=== PATIENT | female | born 1965 | race Caucasian/White ===

== ENCOUNTER → 2017-11-06 15:59 | Outpatient (CLI) | payer OTHER, SELFPAY ==
--- NOTE | 2017-11-06 16:06 | RAD_ITS ---
STUDY: X-RAY - CERVICAL SPINE REASON FOR EXAM: Female, 51 years old. Neck pain TECHNIQUE: Six view(s) of the cervical spine were obtained. COMPARISON: None FINDINGS: Normal anterior atlantoaxial articulation. Normal odontoid process. There is straightening of the normal cervical lordosis. There is minimal anterior subluxation of C4 on C5. No significant abnormalities are seen in the vertebral bodies. There is moderate disc space narrowing at C5-6 and C6-7. There is mild foraminal narrowing on the right at C4-5 and C6-7. There is mild foraminal narrowing on the left at C4-5. There is marked foraminal narrowing on the left at C5-6. There is no prevertebral soft tissue swelling. The lung apices are clear. RAD/Cerv Spine 4 or 5 Views IMPRESSION: There are moderate degenerative disc changes at C5-6 and C6-7. There is marked foraminal narrowing on the left at C5-6. Electronically Signed: Jessenia Jarrell MD at 9:02 EDT Tel Direct: [phone], Service support ,
== END ==
PROVIDERS: Family Provider Family Medicine; PCP Family Medicine; Visit Provider Family Medicine
DX: M50.322 Other cervical disc degeneration at C5-C6 level (principal); M48.02 Spinal stenosis, cervical region
CPT/HCPCS: 72050

== ENCOUNTER 2018-02-05 10:00 | Outpatient (RCR) | payer OTHER, SELFPAY ==
--- NOTE | 2017-11-15 17:48 | HP.PTEVAL_ITS ---
Patient's Visit Information RACHELE YATES is a 52 year old F referred to Physical Therapy by Vern HAYS with a diagnosis of CERVICALAGIA. Date of Evaluation: 11/15/17 Physical Therapist: Juan Gamez PT, - Visit Plan Frequency: 2x /Week Duration: 4 Weeks Plan: manual therapy STM/CERVICAL THORACIC MOBILIZATION ,ICTX 15-20 # X15MIN, FRANK EX,THORACIC,MODALITIES PRN - Subjective Subjective: This 52 y/o female presents to physical therapy with cervicalagia about 1 year. Location symmtrical cervical pain decribed as stiffness/ache. Symptom worse with turning , flexion,extension,driving.siting looking down . Pain afffects sleeping . Symptoms not better with massage. Symptoms affect daily activities and housework task /job demands Denies parathesia/tingling. Patient has RIVERA frontal.Denies tinutis/nausea/dizziness. 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 SOCIAL: - Pain Bilateral Neck Pain Intensity (Out of 10): 2 Pain Intensity Range: 10 - Objective POSTURE: foward head rounded head. NEURO: denies parathesia/tingling ,reflexes 2/3 C5-6-7. PALPATION: UT /levator very tight left greater than right. MMT: BUE 4/5 grossly. AROM: BUE WNL. CERVICAL ROM: flexion min loss,lateral flexion /rotation mod loss,exyension mod loss - Special Tests C/S Radiculapathy - Left Upper limb tension test: Negative C/S Radiculapathy - Right Upper limb tension test: Negative C/S Radiculapathy - Left Spurlings: Positive C/S Radiculapathy - Right Spurlings: Negative C/S Radiculapathy - Left Cervical distraction: Negative C/S Radiculapathy - Right Cervical distraction: Negative Cervical Sitting: Protrusion - Mechanical Response: No effect Cervical Sitting: Protrusion - Symptoms During Testing: No effect Cervical Sitting: Protrusion - Symptoms After Testing: No effect Cervical Sitting: Retraction - Mechanical Response: No effect Cervical Sitting: Retraction - Symptoms During Testing: No effect Cervical Sitting: Retraction - Symptoms After Testing: No effect Cervical Sitting: Retraction-Extension - Mechanical Response: No effect - Goals Goal 1:: Independant with HEP Goal Time Frame: 4-6 Weeks Goal 2:: Independant with posture for ADL'S Goal Time Frame: 4-6 Weeks Goal 3:: Decrease cervical pain 60 % or greater to improve function and ADL;S Goal Time Frame: 4-6 Weeks Goal 4:: Patient improve cervical ROM min loss for function of recovery Goal Time Frame: 4-6 Weeks Goal 5:: Patient be able to peform ADL'S and housework tasks with min limiations Goal Time Frame: 4-6 Weeks - Rehabilitation Potential Physical Therapy Diagnosis: This 52 y/o female displays ith pain cervical -Left UT WITH POSTION,MOTION TO LEFT afffects ADLS' and housework tasks hue to 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 along with possible asymmtrical derrangement Rehabilitation Potential: Good - Anticipated Interventions Patient/Client Instruction: Educate patient on: Condition, Plan of Care For the Purpose of:: To decrease pain, To improve nutrient delivery to tissue, To improve muscle performance and motor function, To improve ability to perform ADL's, To increase tolerance to activity/condition/position, To improve ability of physical actions for home/community/work/leisure, To improve health of tissue , To decrease soft tissue restriction, To increase flexibility/ROM, To assume or resume ADL's, To reduce risk of recurrence, To improve ability to perform tasks related to life management Therapeutic Exercise to Include: Strength training, Postural training, Flexibilty training, Frank Exercises Comment: CERVICAL/THORACIC For the Purpose of:: To decrease pain, To increase ROM, To improve muscle performance and motor function, To increase tolerance to activity/condition/ position, To improve ability of physical actions for home/community/work/leisure , To improve health of tissue, To decrease soft tissue restriction, To increase flexibility/ROM, To improve ability to perform tasks related to life management Manual Therapy Techniques to Include: Mobilization, Soft tissue mobilization For the Purpose of:: To decrease pain, To increase ROM, To improve muscle performance and motor function, To increase tolerance to activity/condition/ position, To improve ability of physical actions for home/community/work/leisure , To improve health of tissue, To decrease soft tissue restriction, To increase flexibility/ROM, To reduce risk of recurrence, To prevent re-injury, To improve ability to perform tasks related to life management TENS: Yes IF ES: Yes Cryotherapy (ice pack, ice massage): Yes Thermo therapy (hot pack): Yes Ultrasound (thermal/non thermal): Yes Intermittent cervical traction: Yes - 15-20# For the Purpose of:: To decrease pain, To increase ROM, To improve nutrient delivery to tissue, To increase oxygenation perfusion, To improve health of tissue, To decrease soft tissue restriction, To increase flexibility/ROM Thank you for the opportunity to evaluate your patient. For Medicare and Medicare HMO plans, please review the plan of care and approve it. It will need to be FAXED BACK to us at [phone] for Medicare purposes. Please let me know if there are questions or concerns regarding this plan of care. Physician Signature: Date:
--- NOTE | 2018-04-05 07:52 | HP.PTDCNRP_ITS ---
HP - Discharge Summary (1) - Patient Information RACHELE YATES was seen in my office for initial evaluation on 11/15/17. The following Plan of Care was established for this patient: Initial Frequency: 2x /Week Initial Duration: 4 Weeks - Anticipated Interventions Patient/Client Instruction: Educate patient on: Condition, Plan of Care For the Purpose of:: To decrease pain, To improve nutrient delivery to tissue, To improve muscle performance and motor function, To improve ability to perform ADL's, To increase tolerance to activity/condition/position, To improve ability of physical actions for home/community/work/leisure, To improve health of tissue , To decrease soft tissue restriction, To increase flexibility/ROM, To assume or resume ADL's, To reduce risk of recurrence, To improve ability to perform tasks related to life management Therapeutic Exercise to Include: Strength training, Postural training, Flexibilty training, Nathan Exercises For the Purpose of:: To decrease pain, To increase ROM, To improve muscle performance and motor function, To increase tolerance to activity/condition/ position, To improve ability of physical actions for home/community/work/leisure , To improve health of tissue, To decrease soft tissue restriction, To increase flexibility/ROM, To improve ability to perform tasks related to life management Manual Therapy Techniques to Include: Mobilization, Soft tissue mobilization For the Purpose of:: To decrease pain, To increase ROM, To improve muscle performance and motor function, To increase tolerance to activity/condition/ position, To improve ability of physical actions for home/community/work/leisure , To improve health of tissue, To decrease soft tissue restriction, To increase flexibility/ROM, To reduce risk of recurrence, To prevent re-injury, To improve ability to perform tasks related to life management TENS: Yes IF ES: Yes Cryotherapy (ice pack, ice massage): Yes Thermo therapy (hot pack): Yes Ultrasound (thermal/non thermal): Yes Intermittent cervical traction: Yes - 15-20# For the Purpose of:: To decrease pain, To increase ROM, To improve nutrient delivery to tissue, To increase oxygenation perfusion, To improve health of tissue, To decrease soft tissue restriction, To increase flexibility/ROM This patient was last seen in our office 02/06/18. Pertinent comments regarding their Physical therapy will appear below: This patient seen for cerviclalgia focusing on manual therapy,ICTX,US and cervicla postural ex's . Patient progressing with decreasing cervical pain,ROM of cervical,improving function,but conts to have endrange pain with cedrvical rotation /lateral flexion end range.Patient to return MD, thus D/C At this point I will be discontinuing this patient from physical therapy. I would be happy to see this patient again in the future if found appropriate by the physician. Thank you! Juan Gamez, PT,
== END 2018-02-05 19:00 | disposition home or self-care (01) ==
LOC: PT 10:00
PROVIDERS: Family Provider Family Medicine; PCP Family Medicine; Visit Provider Family Medicine
DX: M54.2 Cervicalgia (principal)
CPT/HCPCS: 97012; 97035; 97110; 97140; 97161; 97530

== ENCOUNTER → 2018-03-12 08:32 | Outpatient (CLI) | payer OTHER, SELFPAY ==
--- NOTE | 2018-03-12 08:36 | BI_ITS ---
MAMMOGRAPHY - BILATERAL SCREENING REASON FOR EXAM: Female, 52 years old. Routine annual screening examination. PERTINENT HISTORY: Non-contributory. TECHNIQUE: Digital bilateral breast en (3D mammographic acquisition) in the CC and MLO projections. 2-D mediolateral oblique (MLO) and craniocaudad (CC) views of both breasts were obtained. CAD: Full Field Digital Mammography with Computer Added Detection was performed. COMPARISON: Comparison is made with prior study dated February 17, 2015 and March 27, 2014. FINDINGS: Breast Composition: The breasts are heterogeneously dense, which may obscure small masses. There are no dominant masses or suspicious calcifications. No other significant abnormalities are identified. There has been no significant change since the prior study. BI/SCREENING MAMM (CAD), BILAT IMPRESSION: Stable bilateral screening mammogram. Yearly follow-up mammogram recommended. (A) ASSESSMENT CATEGORY: BIRADS Category 1: Negative. A letter regarding these results will be sent to the patient by the facility within 30 days. Approximately 10% of breast cancers are not detected by mammography. A normal mammogram should not delay biopsy of a clinically suspicious abnormality. [id number] Electronically Signed: Arnaldo Zuniga MD at 9:23 EDT Tel [phone], Service support ,
== END ==
PROVIDERS: Family Provider Family Medicine; PCP Family Medicine; Visit Provider Obstetrics & Gynecology
DX: Z12.31 Encounter for screening mammogram for malignant neoplasm of breast (principal)
CPT/HCPCS: 77063; 77067